=== PATIENT | male | born 2000 | race Caucasian/White ===

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

== ENCOUNTER 2019-05-05 12:29 | Emergency (ER) | payer BC ==
[~2019-05-05] VITALS: Ht 175.3 cm; Wt 56.2 kg
--- NOTE | ~2019-05-05 | EKG ---
[facility] [address] [place] [address] ELECTROCARDIOGRAM REPORT Name: SELAM BENITES Room #: [facility] COLBY Elkins#: [id number] Admission: 05/05/19 Attend Phys: Discharge: 05/05/19 Date of : [birth year] Report #: [id number] THIS REPORT FOR: //name// [facility] ED Test Date: 2019-05-05 Test Time: 12:30:15 Pat Name: SELAM BENITES Department: Room: Gender: Color Receiver: ROBERTO : 2000 Requested By: Jillian Diaz Order Number: [id number] MD: Measurements Intervals [place] Rate: 79 P: 76 [place]: 151 QRS: 77 QRSD: 90 T: 56 QT: 359 QTc: 412 Interpretive Statements Sinus rhythm No previous ECG available for comparison [email or web address] By: 1230 1230 Maryan Steinberg MD /EPI
[~2019-05-05 12:29] MED LIST changes: +FLORINEF ACETA0.1 MG PO; +METOPROLOL TART25 MG PO
[2019-05-05 13:12] LABS: ABSOLUTE NEUTROPHILS 3.1 thou/uL (1.4-8.2); EOSINOPHILS 2.4 % (0.0-3.0); HEMATOCRIT 43.5 % (42.0-52.0); HEMOGLOBIN 15.2 gm/dL (14.0-18.0); LYMPHOCYTES 29.6 % (24.0-44.0); MCH 30.4 pg (26.0-34.0); MCHC 34.9 g/dL (28.0-37.0); MONOCYTES 9.7 % (1.0-8.0); PLATELET COUNT 261 thou/uL (150-400); POLYS 57.3 % (36.0-66.0); RDW 12.3 % (10.5-14.5); WBC 5.4 thou/uL (4.0-11.0)
[2019-05-05 13:19] LABS: CALCIUM 9.1 mg/dL (8.5-10.1); CREATININE 0.9 mg/dL (0.7-1.3); POTASSIUM 3.8 mmol/L (3.5-5.1)
[2019-05-05 13:25] LABS: ALBUMIN 4.4 g/dL (3.4-5.0); TOTAL BILIRUBIN 0.8 mg/dL (<0.1-1.0); TOTAL PROTEIN 7.9 g/dL (6.4-8.2)
[2019-05-05 14:30] VITALS: BP 106/57
== END 2019-05-05 14:30 | disposition home or self-care (01) ==
LOC: ER 12:29
PROVIDERS: Physician Assistant
DX: R07.89 Other chest pain (principal); R42 Dizziness and giddiness; F41.9 Anxiety disorder, unspecified; F17.210 Nicotine dependence, cigarettes, uncomplicated; Z88.0 Allergy status to penicillin; Z91.018 Allergy to other foods